=== PATIENT | female | born 2000 | race African-American/Black ===

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

== ENCOUNTER 2020-05-29 21:45 | Observation (INO) | payer MEDICAID ==
[~2020-05-29] VITALS: Ht 162.6 cm; Wt 70.3 kg
== END 2020-05-29 22:48 | disposition home or self-care (01) | DRG 565 ==
LOC: LDRP 21:45
PROVIDERS: ADMIT Specialist; ATTEND Specialist
DX: O47.9 False labor, unspecified (principal); O62.9 Abnormality of forces of labor, unspecified; Z3A.36 36 weeks gestation of pregnancy
CPT/HCPCS: 59025; 81002; G0378